=== PATIENT | male | born 1960 | race Caucasian/White ===

== ENCOUNTER 2019-02-09 01:25 | Outpatient (RCR) | payer BC, SELFPAY ==
[2019-02-09] MEDS: Normal Saline Flush 10 ML SYR IVP (08:40)
[2019-02-09 08:47] LABS: Abs Immature Grans 0.06 k/cumm (0.0-0.09); Absolute Basophil Count 0.03 k/cumm (0.0-0.2); Absolute Eosinophil Count 0.07 k/cumm (0.0-0.7); Absolute Lymphocyte Count 0.24 k/cumm (1.2-3.4); Basophils % 0.2; Eosinophils % 0.5; HCT 39.1 % (40.0-50.0); HGB 13.2 g/dL (13.5-17.5); Immature Grans % 0.4; Lymphocytes % 1.8; Mean Corp. HGB Concentration 33.8 g/dL (32.0-36.0); Mean Corpuscular Hemoglobin 31.7 pg (27.0-33.0); Mean Platelet Volume 9.8 fL (8.0-11.0); Monocytes % 13.3; Neutrophils % 83.8; Platelet Count 284 x1000/uL (130-400); RBC 4.16 m/cumm (4.50-6.00); RBC Distribution Width 12.9 % (11.8-14.1); White Blood Cell Count 13.52 k/cumm (4.4-10.8)
[2019-02-09 09:19] LABS: ALT 19 U/L (12-78); AST 25 U/L (15-37); Albumin 2.6 g/dL (3.4-5.0); Alkaline Phosphatase 159 U/L (46-116); Anion Gap 8.5 mmol/L (3-11); BUN 26 mg/dL (7-18); Bilirubin, Total 0.3 mg/dL (0.2-1.0); CO2 26.5 mmol/L (21.0-32.0); Calcium 9.2 mg/dL (8.5-10.1); Chloride 94 mmol/L (98-107); Glucose 106 mg/dL (70-100); LDH 294 U/L (85-227); Sodium 129 mmol/L (136-145); Total Protein 6.9 g/dL (6.4-8.2)
[2019-02-09 09:24] LABS: Absolute Neutrophil Count 11.33 k/cumm (1.2-6.7)
[2019-02-09 09:25] LABS: Diff Comment Agrees w/ Instrument; RBC Morphology Normal
== END 2019-02-18 23:59 | disposition home or self-care (01) ==
LOC: INF 01:25
PROVIDERS: PCP Specialist/Technologist Athletic Trainer; Visit Provider Internal Medicine Hematology & Oncology
DX: C15.5 Malignant neoplasm of lower third of esophagus (principal); Z45.2 Encounter for adjustment and management of vascular access device
CPT/HCPCS: 36591; 80053; 83615; 85025

== ENCOUNTER 2019-02-25 10:03 | Emergency (ER) | payer BC, SELFPAY ==
[2019-02-25 10:07] VITALS: BP 118/101; PULSE 67; RESP 20; TEMP 36.3; O2SAT 95
--- NOTE | 2019-02-25 10:22 | DI.CT_ITS ---
SYMPTOMS/DIAGNOSIS: CONFUSED, ON CHEMO, FALL YESTERDAY NONCONTRAST HEAD CT: The exam is limited by external artifacts. There are no prior comparison exams. There are areas of encephalomalacia in both frontal lobes near the midline. A small area of lacunar infarct is seen in the right frontal lobe. There is also question of a left cerebellar old infarct. No acute infarct or acute hemorrhage is visible. There is patchiness of the which matter consistent with sequelae of microvascular disease. A tiny mucous retention cyst is seen in the left maxillary sinus. 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 No acute abnormality.
--- NOTE | 2019-02-25 10:24 | DI.CT_ITS ---
SYMPTOMS/DIAGNOSIS: ESOPHAGEAL, STOMACH CANCER; CONFUSED; ABDOMINAL PAIN CHEST CT: There are no prior comparison exams. There is a lower esophageal stent. There is significant respiratory motion. There are blebs at the right lung apex and probable underlying emphysematous changes bilaterally. No infiltrates, pleural or pericardial effusions are seen. There is no gross evidence of adenopathy. There is a question of a mass versus debris at the upper end of the esophageal stent. The ascending aorta is dilated to 4.5 cm. There is no evidence of aortic dissection. Pulmonary arteries are not optimally opacified; however, no central pulmonary artery filling defects are seen. The heart size appears normal. IMPRESSION: Emphysematous changes. Lower esophageal stent with a question of a mass versus debris near the proximal portion of the stent. ABDOMINAL AND PELVIC CT: The exam is limited by patient motion. A stent is seen extending into the lower esophagus to upper stomach. There is a question of a mass at the upper aspect of the esophageal stent. Stool is seen throughout the colon. There is a large quantity of stool seen in the rectum. There is no bowel dilatation. No free air is seen. The liver, gallbladder, spleen, pancreas and kidneys are unremarkable. A Laboy catheter is noted in the urinary bladder, which is decompressed. The patient appears to be status post prostatectomy. There are sclerotic lesions in the bones, suspicious for metastatic disease. IMPRESSION: A large quantity of stool in the colon, particularly in the rectum. There is no evidence of small bowel obstruction.
--- NOTE | 2019-02-25 10:24 | W.ED.GENAD ---
Discharge Plan Disposition Patient Disposition: HOME Condition: Improving Discharge Details Chief Complaint: AMS/LOC Clinical Impression: Sedated due to multiple medications Primary Care Provider: Gillian Jane ED Provider: Carlos Chavez Home Meds and New Rx's Prescriptions: Continued Gelfoam 1 EACH sponge 1 ea Topical E.R. DOSE Qty: 1 RF: 0 fentanyl 50 mcg/hr Patch 72 Hour 50 mcg topical Q48H RF: 0 Discharge Instructions Additional Instructions: Home to rest tonight. Continue regular medications, but as we discussed I recommend you hold on restarting fentanyl patch until tomorrow morning. Return for any acute concerns. Medical Decision Making 58-year-old male who is receiving chemotherapy for esophageal cancer, last dose 3 days ago. He fell and hit his head at home 2 days ago. This morning he was noted to be confused, which the family states this happened following chemotherapy in the past. No recent fever. He does arrive with marijuana in his pocket and fentanyl patch in place. He appears mildly confused, note of mild hypertension. His neurologic exam is otherwise nonfocal. Differential diagnoses includes mild polysubstance effect due to his prescribed fentanyl, question marijuana use. Given the fall must exclude subdural hematoma or other acute intracranial pathology. Additionally, he is at risk for electrolyte abnormality, dehydration, hyperammonemia, as well as expanding mass given his esophageal/gastric cancer. . I removed his fentanyl patch. IV access was established, fluids initiated, patient referred for laboratory testing, CT scan of the head, as well as chest, abdomen, pelvis. Patient did require anxiolysis and small amount of analgesic to perform images adequately. CT images of the head showed no acute finding. There is old infarct present. CT scan of the chest abdomen and pelvis with bony mets, esophageal mass, no other acute findings. Note of large amount of stool. Laboratories White count 4.5, hematocrit 36, it was 301. Chemistry sodium of 132, potassium 3.7, chloride 94, bicarb 24, BUN 25, creatinine 0.8. Calcium 8.4, magnesium 1.7, LFTs with normal transaminases and total bili of 0.4, ammonia 32. Urinalysis without evidence of acute infection. Toxicology shows positive urine opiates and THC. Patient improving in mental status clearing with approximately 6 hours of observation and rehydration with normal saline. Blood pressure normalized. He ambulated, defecated, urinated on his own and subjectively felt better. Presentation consistent with sedation and mild delirium secondary prescribed opiates, marijuana. He is stable for discharge to home with family HPI General Mode of arrival: ambulatory. Date/Time Provider Initiated Documentation: 02/25/19 10:06. Limitations to Documentation: no limitations. Information obtained by: patient and family. History of Present Illness 58 year old M presents to the emergency department with the chief complaint of Confusion. Esophageal cancer. On chemo, fall 2 days ago, described as moderate, Quality is described as constant, Patient reports no radiation. Patient started experiencing this hour(s) and it has been constant. No relieving factors improve symptom(s), No exacerbating factors reported . Patient notes headaches and other (Abdominal pain.); denies fever/chills, nausea/vomiting, seizure and syncope. Patient did receive the following treatments prior to arrival, none Related Data Home Medications Medication Instructions Recorded Confirmed Gelfoam 1 ea TOPICAL E.R. DOSE #1 sponge 12/01/12 fentanyl 50 mcg TOPICAL Q48H 02/25/19 02/25/19 Previous Rx's Medication Instructions Recorded Gelfoam 1 ea TOPICAL E.R. DOSE #1 sponge 12/01/12 Allergies Allergy/AdvReac Type Severity Reaction Status Date / Time No Known Allergies Allergy Unverified 02/25/19 10:11 General Stated Complaint: AMS/LOC PIPPA: 2 Review of Systems Review of Systems No chest pain, cough, shortness of breath. No syncope. Fell while going to the bathroom 2 days ago. 6 systems reviewed and otherwise negative [facility] Medical History Esophageal cancer (Acute) Stomach cancer (Acute) Social History Smoking/Tobacco Use Status: Former Tobacco Use Alcohol Intake: never Drug use: Never Do you feel safe at home: Yes Do you feel safe in your relationship?: Yes Exam Narrative Exam Narrative: GEN: awake, alert, interactive and following commands per pleasant, well groomed. HEAD: Normocephalic, atraumatic ENT: Mucous membranes moist, oropharynx unremarkable, External ear exam unremarkable EYES: PERRL, EOMI NECK: Full ROM, no ADENIKE, no menigismus CHEST/RESP: Right chest port, nontender, clear to auscultation bilateral, no wheeze/rhonchi/rales CARDIOVASCULAR: RRR, no murmur, rub artemio. 2+ Rad pulse bilateral ABDOMEN: Soft, mild diffuse tenderness, no mass. +Bowel sounds EXT: Full ROM, no edema, no rash Neuro: Grossly normal neurologic exam, conversant, interactive. Follows commands. Cranial nerves II through XII intact. Pupils mildly dilated but symmetric and responsive bilaterally Psych: Speech fluent, affect bizarre at times Course Vital Signs Temperature 36.3 C L 02/25/19 10:07 Pulse 67 02/25/19 10:07 Respiratory Rate 20 02/25/19 10:07 Blood Pressure 118/101 H 02/25/19 10:07 Pulse Oximetry 95 02/25/19 10:07 Temperature 36.3 C L 02/25/19 10:07 Temperature Source Temporal Artery Scan 02/25/19 10:07 Pulse 67 02/25/19 10:07 Respiratory Rate 20 02/25/19 10:07 Respiratory Effort Non-Labored 02/25/19 10:07 Blood Pressure 118/101 H 02/25/19 10:07 Pulse Oximetry 95 02/25/19 10:07 Oxygen Delivery Method Room Air 02/25/19 10:07 Oxygen Flow Rate 0 02/25/19 10:07 Pain Level 0 02/25/19 10:07
[2019-02-25 10:41] LABS: Abs Immature Grans 0.01 k/cumm (0.0-0.09); Absolute Lymphocyte Count 0.19 k/cumm (1.2-3.4); Absolute Monocyte Count 0.48 k/cumm (0.11-0.7); Absolute Neutrophil Count 3.87 k/cumm (1.2-6.7); HCT 36.7 % (40.0-50.0); HGB 12.2 g/dL (13.5-17.5); Immature Grans % 0.2; Lymphocytes % 4.2; Mean Corp. HGB Concentration 33.2 g/dL (32.0-36.0); Mean Corpuscular Hemoglobin 30.7 pg (27.0-33.0); Mean Corpuscular Volume 92.4 fL (80-95); Mean Platelet Volume 9.7 fL (8.0-11.0); Monocytes % 10.5; Neutrophils % 85.1; Platelet Count 301 x1000/uL (130-400); RBC 3.97 m/cumm (4.50-6.00); RBC Distribution Width 13.1 % (11.8-14.1); White Blood Cell Count 4.55 k/cumm (4.4-10.8)
[2019-02-25 11:09] LABS: ALT 30 U/L (12-78); AST 27 U/L (15-37); Albumin 2.7 g/dL (3.4-5.0); Alkaline Phosphatase 507 U/L (46-116); Anion Gap 13.7 mmol/L (3-11); BUN 25 mg/dL (7-18); Bilirubin, Total 0.4 mg/dL (0.2-1.0); CO2 24.3 mmol/L (21.0-32.0); CREATININE 0.87 mg/dL (0.70-1.30); Calcium 8.4 mg/dL (8.5-10.1); Chloride 94 mmol/L (98-107); Glucose 137 mg/dL (70-100); Magnesium 1.7 mg/dL (1.8-2.4); Potassium 3.7 mmol/L (3.5-5.1); Sodium 132 mmol/L (136-145); TSH 0.63 uIU/mL (0.36-3.74); Total Protein 7.1 g/dL (6.4-8.2)
[2019-02-25 11:32] LABS: ETHANOL BLOOD < 3.0 mg/dL (<3)
[2019-02-25 11:50] LABS: Ammonia 32 umol/L (11-32)
[2019-02-25] MEDS: LORazepam 2 MG/ML VIAL 0.5 MG IVP (11:54)
[2019-02-25] MEDS: LORazepam 2 MG/ML VIAL (12:13)
[2019-02-25 12:32] LABS: Bilirubin Small (Negative); Blood Negative (Negative); Clarity Clear (Clear); Glucose Negative (Negative); Ketones 15 mg/dL (Negative); Leukocyte Esterase Negative (Negative); Nitrite Negative (Negative)
[2019-02-25 12:45] LABS: Bacteria Rare HPF (Negative); C & S Indicated? No; Casts 0-2 Hyaline LPF (Negative); Crystals Negative HPF (Negative); Epithelial Cells Rare HPF (Negative); Mucus Trace (Negative); RBC Negative (0-2); WBC 0-2 HPF (0-5)
[2019-02-25] MEDS: MORPHine 10 MG/ML VIAL 4 MG IVP (13:09)
[2019-02-25] MEDS: Normal Saline 1,000 ML 125 ML IV (13:09)
[2019-02-25 13:14] VITALS: BP 140/84; PULSE 84; RESP 18; O2SAT 94
[2019-02-25 13:15] VITALS: BP 117/79
[2019-02-25] MEDS: Omnipaque 350 MG/ML 100 ML BTL IJ (14:10)
[2019-02-25 14:16] LABS: *AMPHETAMINES SCREEN URINE Negative (Negative); *BARBITURATES SCREEN URINE Negative (Negative); *BENZODIAZEPINES SCREEN URINE Negative (Negative); Cannabinoids THC POSITIVE (Negative); Cocaine Screen,Urine Negative (Negative); METHADONE URINE SCREEN Negative (Negative); OPIATES URINE SCREEN POSITIVE (Negative); Tricyclic Antidepressants Negative (Negative)
[2019-02-25 17:30] VITALS: BP 132/85; PULSE 80
== END 2019-02-25 17:25 | disposition home or self-care (01) ==
PROVIDERS: Emergency Provider Emergency Medicine; PCP Nurse Practitioner Family
DX: R40.0 Somnolence (principal); T40.4X5A Adverse effect of other synthetic narcotics, initial encounter; S09.90XA Unspecified injury of head, initial encounter; W18.30XA Fall on same level, unspecified, initial encounter; F11.921 Opioid use, unspecified with intoxication delirium; F12.921 Cannabis use, unspecified with intoxication delirium; C15.5 Malignant neoplasm of lower third of esophagus; Z79.899 Other long term (current) drug therapy; Z95.828 Presence of other vascular implants and grafts
CPT/HCPCS: 36416; 36591; 36592; 74177; 80053; 80307; 82962; 96361; 96374; 96375; 99285; 70450; 71260; 80320; 81003; 81015; 82140; 83735; 84443; 85025; J2060; J2270; J3490

== ENCOUNTER 2019-03-09 01:40 | Outpatient (RCR) | payer BC, SELFPAY ==
[2019-02-23] MEDS: Normal Saline Flush 10 ML SYR IVP (08:00)
[2019-02-23 08:18] LABS: Abs Immature Grans 0.01 k/cumm (0.0-0.09); Absolute Basophil Count 0.03 k/cumm (0.0-0.2); Absolute Eosinophil Count 0.19 k/cumm (0.0-0.7); Absolute Lymphocyte Count 0.42 k/cumm (1.2-3.4); Absolute Monocyte Count 0.98 k/cumm (0.11-0.7); Absolute Neutrophil Count 4.79 k/cumm (1.2-6.7); Basophils % 0.5; HCT 38.3 % (40.0-50.0); HGB 12.9 g/dL (13.5-17.5); Immature Grans % 0.2; Lymphocytes % 6.5; Mean Corp. HGB Concentration 33.7 g/dL (32.0-36.0); Mean Corpuscular Hemoglobin 31.4 pg (27.0-33.0); Mean Corpuscular Volume 93.2 fL (80-95); Monocytes % 15.3; Neutrophils % 74.5; Platelet Count 284 x1000/uL (130-400); RBC 4.11 m/cumm (4.50-6.00); RBC Distribution Width 13.2 % (11.8-14.1); White Blood Cell Count 6.42 k/cumm (4.4-10.8)
[2019-02-23 08:32] LABS: ALT 24 U/L (12-78); AST 23 U/L (15-37); Albumin 2.6 g/dL (3.4-5.0); Alkaline Phosphatase 435 U/L (46-116); Anion Gap 10.1 mmol/L (3-11); BUN 22 mg/dL (7-18); Bilirubin, Total 0.5 mg/dL (0.2-1.0); CO2 26.9 mmol/L (21.0-32.0); CREATININE 0.75 mg/dL (0.70-1.30); Calcium 9.1 mg/dL (8.5-10.1); Chloride 94 mmol/L (98-107); Glucose 112 mg/dL (70-100); Potassium 3.7 mmol/L (3.5-5.1); Sodium 131 mmol/L (136-145)
[2019-02-24 11:02] LABS: CEA 574.3 ng/ml
[2019-03-09] MEDS: Normal Saline Flush 10 ML SYR IVP (07:50)
[2019-03-09 08:35] LABS: Abs Immature Grans 0.01 k/cumm (0.0-0.09); HGB 11.1 g/dL (13.5-17.5); Mean Corp. HGB Concentration 32.6 g/dL (32.0-36.0); Mean Corpuscular Hemoglobin 30.7 pg (27.0-33.0); Mean Corpuscular Volume 94.2 fL (80-95); Platelet Count 225 x1000/uL (130-400); RBC 3.61 m/cumm (4.50-6.00); RBC Distribution Width 14.2 % (11.8-14.1); White Blood Cell Count 3.33 k/cumm (4.4-10.8)
[2019-03-09 09:02] LABS: ALT 27 U/L (12-78); AST 18 U/L (15-37); Albumin 2.3 g/dL (3.4-5.0); Alkaline Phosphatase 495 U/L (46-116); BUN 19 mg/dL (7-18); Bilirubin, Total 0.4 mg/dL (0.2-1.0); CREATININE 0.69 mg/dL (0.70-1.30); Calcium 8.5 mg/dL (8.5-10.1); Chloride 95 mmol/L (98-107); Glucose 135 mg/dL (70-100); Potassium 3.1 mmol/L (3.5-5.1); Sodium 133 mmol/L (136-145); Total Protein 6.5 g/dL (6.4-8.2)
[2019-03-09 09:06] LABS: Absolute Neutrophil Count 2.03 k/cumm (1.2-6.7)
[2019-03-09 09:07] LABS: Absolute Eosinophil Count 0.03 k/cumm (0.0-0.7); Absolute Monocyte Count 1.07 k/cumm (0.11-0.7); Anisocytosis 1+; Diff Comment Manual Differential; Macrocytosis 1+; Polychromasia Present
[2019-03-10 09:29] LABS: CEA 372.4 ng/ml
== END 2019-03-21 23:59 | disposition home or self-care (01) ==
LOC: INF 01:40
PROVIDERS: PCP Specialist/Technologist Athletic Trainer; Visit Provider Internal Medicine Hematology & Oncology
DX: C15.5 Malignant neoplasm of lower third of esophagus (principal); Z45.2 Encounter for adjustment and management of vascular access device
CPT/HCPCS: 36591; 80053; 82378; 85025

== ENCOUNTER 2019-03-20 12:42 | Inpatient (IN) | payer BC, SELFPAY ==
[2019-03-20] VITALS (29 sets, daily range): BP systolic 94–108; BP diastolic 53–77; PULSE 64–110; RESP 13–20; TEMP 36.4–37.7; O2SAT 93–100
--- NOTE | 2019-03-20 12:52 | DI.CT_ITS ---
SYMPTOM/DIAGNOSIS: KNOWN ABD CA AND ESOPHAGEAL CA, DECREASED PO, VOMITING CTA CHEST, ABDOMEN AND PELVIS: CHEST: CT angiography was performed with multi slice acquisition and multi planar and 3D reconstruction. Comparison is made with 02/25/19. The ascending aorta is again noted to be dilated. There is no evidence of aortic dissection. An esophageal stent is seen. The stomach and esophagus are fluid filled. There may be obstruction at the upper aspect of the stent although no discrete mass is seen. There are no visible pulmonary emboli. There is some mucus within right lower lobe bronchi. No pleural or pericardial effusions or acute infiltrates are seen. There are underlying emphysematous changes and bulla at the lung apices. Bony metastases are again noted. A Port is seen over the left upper chest. IMPRESSION: No evidence of pulmonary emboli or aortic dissection. There is an apparent obstruction at the upper aspect of the esophageal stent. ABDOMEN AND PELVIS: The esophageal stent is again noted extending into the upper stomach. There is no small bowel dilatation. Increased stool is noted in the cecum and ascending colon. There are small mesenteric lymph nodes. The pancreas is atrophic. The kidneys show symmetric bilateral perfusion. There are several tiny cysts. There are no stones or hydronephrosis. The liver and gallbladder are unremarkable. There is calcification of the abdominal aorta and iliac arteries but no evidence of an aneurysm or dissection. The bladder is nearly empty. The prostate shows calcification but is normal in size. Numerous sclerotic bony metastases are seen. IMPRESSION: Increased stool in the cecum. Atherosclerotic changes of the abdominal aorta. No acute abnormality.
--- NOTE | 2019-03-20 12:57 | ED.GENADUL_ITS ---
Discharge Plan Disposition Patient Disposition: [facility] IN[facility] Condition: Stable Discharge Details Chief Complaint: GenMedical Clinical Impression: Palliative care patient, Adult failure to thrive, Acute dehydration Primary Care Provider: Gillian Jane ED Provider: Hima Caldera Home Meds and New Rx's Prescriptions: No Action acetaminophen 650 mg tablet extended release 650 mg PO Q8H RF: 0 polyethylene glycol 3350 [Miralax] 17 gram powder in packet 17 gm PO DAILY RF: 0 prochlorperazine maleate 10 mg tablet 10 mg PO Q8H PRNRF: 0 omeprazole magnesium 10 mg susp,delayed release for recon 40 mg PO BID RF: 0 Ensure Active Heart Health Liquid PO BID-TID RF: 0 hydromorphone [Dilaudid] 2 mg tablet 2 mg PO Q4H MDD 12 mg PRN (Reason: pain) Qty: 30 RF: 0 lidocaine HCl [Lidocaine Viscous] 2 % solution 1 applic MM QID PRN (Reason: pain) Qty: 100 RF: 3 ondansetron 4 mg tablet,disintegrating 4 mg PO Q8H PRN (Reason: nausea and vomiting) Qty: 30 RF: 0 Medical Decision Making This is a 58-year-old male who presents today for evaluation of failure to thrive. 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 He is receiving chemotherapy, and did have radiation 6 weeks ago. He was seen by his PCP today, and there was concern for failure to thrive with significant decrease intake, constant spitting up, decreased blood pressure and increased heart rate. PCP recommended admission, hospitalist recommended evaluation in ED prior to admission. On exam at there is a notably cachectic thin male blood pressure is slightly low, heart rate slightly elevated, generalized abdominal pain, actively spitting up small amounts of spit. No signs of airway obstruction. The patient is able to tolerate fluids still but limited. We will rehydrate, further evaluate his current upper GI scenario with CT scan, treat his pain and reassess. 2:45 PM Laboratory work-up is returned, no significant acute life-threatening abnormalities or electrolyte dysfunction noted. Troponin normal. EKG demonstrates notable elevation in P wave, but no bifid P wave, concern for right atrial enlargement. CT Yara was added to rule out PE because of this. CT scan per Dr. Boggs of the chest abdomen and pelvis demonstrates no acute process, she states that the esophagus and stent is fluid-filled, but the abrupt proximal endpoint actually appears better than on previous CT scans. There is a mucous plug but no other life-threatening abnormality noted at this time. On rehydration the patient's heart rate has improved, blood pressure stabilized to the low 100s. The patient does feel better after Zofran, pain meds and fluids. However I do feel that he would still benefit from admission, continued hydration, palliative care consult, and further evaluation with dietary. I discussed the case with Dr. Gama, I have extensively reviewed the treatment plan with the patient. I have addressed all patient concerns at this time. I have also discussed the plan with the admitting physician and they agree with the current assessment and plan and have agreed to assume responsibility for the patient. All parties demonstrate verbal understanding and agreement with our assessment and plan at this time. TA CHEST, ABDOMEN AND PELVIS: CHEST: CT angiography was performed with multi slice acquisition and multi planar and 3D reconstruction. Comparison is made with 02/25/19. The ascending aorta is again noted to be dilated. There is no evidence of aortic dissection. An esophageal stent is seen. The stomach and esophagus are fluid filled. There may be obstruction at the upper aspect of the stent although no discrete mass is seen. There are no visible pulmonary emboli. There is some mucus within right lower lobe bronchi. No pleural or pericardial effusions or acute infiltrates are seen. There are underlying emphysematous changes and bulla at the lung apices. Bony metastases are again noted. A Port is seen over the left upper chest. IMPRESSION: No evidence of pulmonary emboli or aortic dissection. There is an apparent obstruction at the upper aspect of the esophageal stent. ABDOMEN AND PELVIS: The esophageal stent is again noted extending into the upper stomach. There is no small bowel dilatation. Increased stool is noted in the cecum and ascending colon. There are small mesenteric lymph nodes. The pancreas is atrophic. The kidneys show symmetric bilateral perfusion. There a re several tiny cysts. There are no stones or hydronephrosis. The liver and gallbladder are unremarkable. There is calcification of the abdominal aorta and iliac arteries but no evidence of an aneurysm or dissection. The bladder is nearly empty. The prostate shows calcification but is normal in size. Numerous sclerotic bony metastases are seen. IMPRESSION: Increased stool in the cecum. Atherosclerotic changes of the abdominal aorta. No acute abnormality. [id number]: Total DLP = 0.00 mGy-cm EKG 13: 60 Rate 94, intervals normal, sinus rhythm, notable T wave elevation in 2 3 and aVF, no ST elevation, no significant ST depression. No evidence of STEMI. Considered for notable right atrial enlargement, no bifid P waves, no indication for left atrial enlargement. HPI General Date/Time Provider Initiated Documentation: 03/20/19 12:45 . HPI Narrative: This is a 58-year-old male with a past medical history of esophageal cancer with stenting, and metastases, he has received radiation 6 weeks ago, and is still currently undergoing chemotherapy. He presents today for evaluation of failure to thrive. He was seen by his primary care provider Dr. Mehta, and was found to be notably decreasing his p.o. intake, having increased pain, decreased urine output, and low blood pressure. The PCP contacted the hospitalist Dr. Gama who recommended that the patient come to the ER for initial assessment prior to admission. Currently the patient admits to decreased in the eating, increased abdominal pain, constant spitting up of purulent throat contents. He denies any fever or chills. He denies any chest pain or shortness of breath. He denies any numbness or tingling. He denies any hemoptysis, hematuria, hematochezia, melena or acholic stool. No other complaints at this time. No current blood thinners. No history of cardiac disease. No history of stroke. He is currently under the care of palliative care and is full code. Related Data Home Medications Medication Instructions Recorded Confirmed acetaminophen 650 mg 650 mg PO Q8H 03/17/19 03/17/19 tablet,extended release food supplemt, lactose-reduced ml PO BID-TID ml 03/17/19 03/17/19 hydromorphone 2 mg tablet 2 mg PO Q4H PRN #30 tab MDD 12 mg 03/17/19 03/17/19 lidocaine HCl 2 % mucosal solution 1 applic MM QID PRN #100 ml 03/17/19 03/17/19 omeprazole magnesium 10 mg oral 40 mg PO BID each 03/17/19 03/17/19 suspension,delayed release ondansetron 4 mg disintegrating 4 mg PO Q8H PRN #30 tab 03/17/19 03/17/19 tablet polyethylene glycol 3350 17 gram 17 gm PO DAILY 03/17/19 03/17/19 oral powder packet prochlorperazine maleate 10 mg 10 mg PO Q8H PRN 03/17/19 03/17/19 tablet Previous Rx's Medication Instructions Recorded hydromorphone 2 mg tablet 2 mg PO Q4H PRN #30 tab MDD 12 mg 03/17/19 lidocaine HCl 2 % mucosal solution 1 applic MM QID PRN #100 ml 03/17/19 ondansetron 4 mg disintegrating 4 mg PO Q8H PRN #30 tab 03/17/19 tablet Allergies Allergy/AdvReac Type Severity Reaction Status Date / Time No Known Allergies Allergy Unverified 02/25/19 10:11 General Stated Complaint: GenMedical PIPPA: 2 Review of Systems Review of Systems All systems reviewed & are unremarkable except as noted in HPI and below PFSH Medical History (Updated 03/20/19 @ 09:16 by Selina Moody MD) Acid reflux disease (Chronic) Back pain (Acute) Cancer related pain (Acute) Dysphagia (Acute) Esophageal cancer (Acute) Fatigue (Acute) Goals of care, counseling/discussion (Acute) Hyperlipidemia (Acute) Malignant cachexia (Acute) Palliative care patient (Acute) Stage IV adenocarcinoma of esophagus (Acute) Stomach cancer (Acute) Tobacco abuse (Acute) Unintentional weight loss (Acute) Family History (Updated 03/20/19 @ 08:48 by Selina Moody MD) Mother , age 89 following a fall Fall Mixed Alzheimer's and vascular dementia Father , age 72 from COPD End stage COPD Smoker Brother End stage COPD Smoker Brother Stroke Sister No problems noted. Sister No problems noted. Sister No problems noted. Son No problems noted. Son No problems noted. Social History (Updated 03/20/19 @ 08:52 by Selina Moody MD) Smoking/Tobacco Use Status: Former Tobacco Use Tobacco: How many years used: 45 Second Hand Exposure: No Alcohol Intake: former Drug use: Never Caregiver/Support person: Yes Household members: spouse Housing: house Number of Children: 2 number of grandchildren: 2 Communication Needs: Hard of Hearing and Corrective Lenses Education Level: high school Do you need help understanding health information?: Always current occupation: disabled as of December 2018 [employer] Pets and animals: No What is your relationship status?: How often do you talk on the phone with friends or family?: once per week How often do you get together with friends or relatives?: three or more times per week Panel score (0-1 are the most socially isolated patients): 2 What type of physical activity do you participate in: none Special joselito needs: No Agree to transfusion: Yes Seatbelt use: sometimes Firearms in home: Yes Do you feel safe at home: Yes Do you feel safe in your relationship?: Yes Additional Social history: in November 2018. Diagnosed with stage IV esophageal cancer in December. House under major renovations. Too weak to sit up during his visit. Cannot manage construction project. took out major loan for work. Afraid she will lose her house now. Needed 2 incomes to pay bills. Exam Narrative Exam Narrative: 1.Const: Thin, cachectic appearing male. 2.Eyes: PERRL, no conjunctival injection, and symmetrical lids. 3.ENT: Atraumatic external nose and ears. Notably dry MM. Neck: Symmetric, trachea midline, No thyromegaly. 4.CVS: +S1/S2, No murmurs or gallops. Peripheral pulses 2+ and equal in all extremities. Brisk capillary refill in all extremities. 5.RESP: Unlabored respiratory effort. Minimal crackles in the bases, no wheezes or rhonchi. 6.GI: Soft,, slightly scaphoid, nondistended, tenderness throughout. 7.MSK: Normocephalic/Atraumatic, Extremities w/o deformity or ttp No cyanosis or clubbing, Normal movement of all extremities 8.Skin: Warm, Dry. No rashes or lesions. 9.Neuro: help desk specialist II-XII grossly intact. Sensation grossly intact, no focal neurologic deficits. 10.Psych: (AAO) x3. Appropriate mood and affect Course Vital Signs Temperature 36.4 C L 03/20/19 12:46 Pulse 110 H 03/20/19 12:46 Respiratory Rate 18 03/20/19 12:46 Blood Pressure 98/53 L 03/20/19 12:46 Pulse Oximetry 97 03/20/19 12:46 Temperature 36.4 C L 03/20/19 12:46 Temperature Source Skin 03/20/19 12:46 Pulse 110 H 08/30/19 12:46 Respiratory Rate 18 03/20/19 12:46 Respiratory Effort 03/20/19 12:50 Blood Pressure 98/53 L 03/20/19 12:46 Blood Pressure Position Sitting 03/20/19 12:46 Pulse Oximetry 97 03/20/19 12:46
[2019-03-20] MEDS: Normal Saline Flush 10 ML SYR IVP ×2 (13:05→20:56)
[2019-03-20] MEDS: Normal Saline 1,000 ML 1000 ML IV (13:05)
[2019-03-20] MEDS: MORPHine 10 MG/ML VIAL 4 MG IVP ×2 (13:16→15:05)
[2019-03-20 13:18] LABS: Abs Immature Grans 0.01 k/cumm (0.0-0.09); Absolute Basophil Count 0.01 k/cumm (0.0-0.2); Absolute Eosinophil Count 0.01 k/cumm (0.0-0.7); Absolute Lymphocyte Count 0.31 k/cumm (1.2-3.4); Absolute Monocyte Count 1.12 k/cumm (0.11-0.7); Absolute Neutrophil Count 4.98 k/cumm (1.2-6.7); Basophils % 0.2; Eosinophils % 0.2; HCT 33.8 % (40.0-50.0); HGB 11.1 g/dL (13.5-17.5); Immature Grans % 0.2; Lymphocytes % 4.8; Mean Corp. HGB Concentration 32.8 g/dL (32.0-36.0); Mean Corpuscular Hemoglobin 31.1 pg (27.0-33.0); Mean Corpuscular Volume 94.7 fL (80-95); Mean Platelet Volume 10.8 fL (8.0-11.0); Monocytes % 17.4; Neutrophils % 77.2; Platelet Count 161 x1000/uL (130-400); RBC 3.57 m/cumm (4.50-6.00); RBC Distribution Width 14.6 % (11.8-14.1); White Blood Cell Count 6.44 k/cumm (4.4-10.8)
[2019-03-20] MEDS: Ondansetron 4 MG/2 ML VIAL IVP (13:19)
[2019-03-20 13:36] LABS: ALT 34 U/L (16-63); AST 25 U/L (15-37); Albumin 2.5 g/dL (3.4-5.0); Alkaline Phosphatase 428 U/L (46-116); Anion Gap 10.5 mmol/L (3-11); BUN 21 mg/dL (7-18); Bilirubin, Total 0.4 mg/dL (0.2-1.0); CO2 26.5 mmol/L (21.0-32.0); CREATININE 0.85 mg/dL (0.70-1.30); Calcium 8.6 mg/dL (8.5-10.1); Chloride 98 mmol/L (98-107); Glucose 143 mg/dL (70-100); Potassium 3.7 mmol/L (3.5-5.1); Sodium 135 mmol/L (136-145); Total Protein 6.7 g/dL (6.4-8.2)
[2019-03-20] MEDS: Omnipaque 350 MG/ML 100 ML BTL IV (13:53)
[2019-03-20 13:56] LABS: Lipase 26 U/L (73-393)
[2019-03-20 14:19] LABS: Troponin I < 0.05 ng/mL (0.00-0.06)
[2019-03-20] MEDS: Normal Saline 1,000 ML 75 ML IV (16:15)
[2019-03-20] MEDS: Heparin 5,000 UNITS/ML VIAL 5000 UNITS SC (17:34)
--- NOTE | 2019-03-20 19:47 | HPE_ITS ---
Date of service: 03/20/19 Time of Service: 19:48 Assessment and Plan (1) Uncontrolled pain: Current visit: Yes Status: Acute chest pain in addition to odynophagia. cover with IV morphine, continue fentanyl patches - consider increasing dose, agree with viscous lidocaine (2) Stage IV adenocarcinoma of esophagus: Current visit: No Status: Acute with bony mets, on chemo under Dr Steen. S/p esophageal stent - ? obstructed now - awaiting phone consult with GI. (3) Dysphagia: Current visit: No Status: Acute Likely related to the esophageal obstruction. [place] [facility] On clear liquids for now. (4) Malignant cachexia: Current visit: No Status: Acute consult nutrition. BMI of 16.2 (5) DVT prophylaxis: Current visit: Yes Status: Acute Heparin SC (6) Discharge planning issues: Current visit: Yes Status: Acute Full code Patient and refuse transfer History of Present Illness Chief Complaint: chest pain Narrative: Mr David Shanks is a 58 year old male with stage IV esophageal adenocarcinoma, on chemo, s/p XRT and esophageal stent, as well as h/o GERD, who has been having a lot of pain, especially when eating solids, in his chest. The pain is mostly in his lower chest - in the center and bilaterally, but he also gets a pain in his midchest when he eats solids, which sometimes feels like food might be getting stuck. Until today, he hadn't had vomiting at home except after chemo. He is under treatment of his cancer by Dr Steen. He was felt to be a poor candidate for PEG/G-tube when he had the esophageal [place] [facility] [place] Austin. He was on a combination of fentanyl patch 50 mcg/hr and morphine at home, which was recently switched to PO dilaudid. He is on a PPI, taking ensure supplements, and despite this has lost 80 lbs since December. In the ED, his CT imaging suggested an obstruction at the proximal end of the esophageal stent. The patient's states they cannot afford an ambulance [place] [facility] and refuses transfer at this time. We are awaiting call back [place] [facility] at this time with their opinion as to how to proceed. The patient states he can still tolerate liquids at this time. His goal in coming here was to get pain control. Review of Systems Review of Systems 12 systems reviewed. Pertinent positives and negatives are as per HPI. [facility] Medical History (Updated 03/20/19 @ 20:13 by Rosemary Gama MD) Acid reflux disease (Chronic) Back pain (Acute) Cancer related pain (Acute) Dysphagia (Acute) Esophageal cancer (Acute) Fatigue (Acute) Goals of care, counseling/discussion (Acute) Hyperlipidemia (Acute) Malignant cachexia (Acute) Palliative care patient (Acute) Stage IV adenocarcinoma of esophagus (Acute) Stomach cancer (Acute) Tobacco abuse (Acute) Unintentional weight loss (Acute) Surgical History (Updated 03/20/19 @ 20:07 by Rosemary Gama MD) H/O esophagogastroduodenoscopy (Chronic) and esophageal stent Port-A-Cath in place (Acute) Family History (Updated 03/20/19 @ 20:08 by Rosemary Gama MD) Mother , age 89 following a fall Fall Mixed Alzheimer's and vascular dementia Father , age 72 from COPD End stage COPD Smoker Brother End stage COPD Smoker Brother No problems noted. Sister No problems noted. Sister No problems noted. Sister No problems noted. Son No problems noted. Son No problems noted. Social History (Updated 03/20/19 @ 08:52 by Selina Moody MD) Smoking/Tobacco Use Status: Former Tobacco Use Tobacco: How many years used: 45 Second Hand Exposure: No Alcohol Intake: former Drug use: Never Caregiver/Support person: Yes Household members: spouse Housing: house Number of Children: 2 number of grandchildren: 2 Communication Needs: Hard of Hearing and Corrective Lenses Education Level: high school Do you need help understanding health information?: Always current occupation: disabled as of December 2018 [employer] Pets and animals: No What is your relationship status?: How often do you talk on the phone with friends or family?: once per week How often do you get together with friends or relatives?: three or more times per week Panel score (0-1 are the most socially isolated patients): 2 What type of physical activity do you participate in: none Special joselito needs: No Agree to transfusion: Yes Seatbelt use: sometimes Firearms in home: Yes Do you feel safe at home: Yes Do you feel safe in your relationship?: Yes Additional Social history: in November 2018. Diagnosed with stage IV esophageal cancer in December. House under major renovations. Too weak to sit up during his visit. Cannot manage construction project. took out major loan for work. Afraid she will lose her house now. Needed 2 incomes to pay bills. Meds Home Medications Medication Instructions Recorded Confirmed Type acetaminophen 650 mg 650 mg PO Q8H 03/17/19 03/20/19 History tablet,extended release hydromorphone 2 mg tablet 2 mg PO Q4H PRN #30 tab MDD 12 mg 03/17/19 03/20/19 Rx lidocaine HCl 2 % mucosal solution 1 applic MM QID PRN #100 ml 03/17/19 03/20/19 Rx omeprazole magnesium 10 mg oral 40 mg PO BID each 03/17/19 03/20/19 History suspension,delayed release ondansetron 4 mg disintegrating 4 mg PO Q8H PRN #30 tab 03/17/19 03/20/19 Rx tablet polyethylene glycol 3350 17 gram 17 gm PO DAILY 03/17/19 03/20/19 History oral powder packet prochlorperazine maleate 10 mg 10 mg PO Q8H PRN 03/17/19 03/20/19 History tablet fentanyl 50 patch TRANSDERMAL Q48H 03/20/19 03/20/19 History morphine 15 mg PO Q4H PRN 03/20/19 03/20/19 History Allergies Allergy/AdvReac Type Severity Reaction Status Date / Time No Known Allergies Allergy Unverified 02/25/19 10:11 Exam Narrative Exam Narrative: General: Very pleasant, tired, cachectic appearing male, uncomfortable in bed Neurological: A&Ox3, no focal deficits Psychiatric: flat affect - but appropriate speech pattern/content Skin: dry, intact HEENT: Atraumatic, normocephalic, EOMI, dry MM, clear oropharynx, no submandibular or cervical lymphadenopathy, no goiter or JVD Cardiovascular: RRR, no m/r/g Lungs: CTAB Gastrointestinal: abdomen is soft, nontender, nondistended Extremities: no e/c/c BLE's Results Imaging Additional studies: CTA chest: No evidence of pulmonary emboli or aortic dissection. There is an apparent obstruction at the upper aspect of the esophageal stent. CT abdomen/pelvis: Increased stool in the cecum. Atherosclerotic changes of the abdominal aorta. No acute abnormality. Labs : 03/20/19 13:05 03/20/19 13:05 Laboratory Results - last 24 hr 03/20/19 03/20/19 03/20/19 13:05 13:05 13:05 WBC 6.44 RBC 3.57 L Hgb 11.1 L Hct 33.8 L MCV 94.7 MCH 31.1 MCHC 32.8 RDW 14.6 H Plt Count 161 MPV 10.8 Immature Gran % 0.2 Neutrophils % 77.2 Lymphocytes % 4.8 Monocytes % 17.4 Eosinophils % 0.2 Basophils % 0.2 Absolute Neutrophils 4.98 Absolute Lymphocytes 0.31 L Absolute Monocytes 1.12 H Absolute Eosinophils 0.01 Absolute Basophils 0.01 Sodium 135 L Potassium 3.7 Chloride 98 Carbon Dioxide 26.5 Anion Gap 10.5 BUN 21 H Creatinine 0.85 Estimated GFR/1.73 m2 >= 60.00 Glucose 143 H Calcium 8.6 Magnesium 2.0 Total Bilirubin 0.4 AST 25 ALT 34 Alkaline Phosphatase 428 H Troponin I Total Protein 6.7 Albumin 2.5 L Lipase 26 L 03/20/19 13:05 WBC RBC Hgb Hct MCV MCH MCHC RDW Plt Count MPV Immature Gran % Neutrophils % Lymphocytes % Monocytes % Eosinophils % Basophils % Absolute Neutrophils Absolute Lymphocytes Absolute Monocytes Absolute Eosinophils Absolute Basophils Sodium Potassium Chloride Carbon Dioxide Anion Gap BUN Creatinine Estimated GFR/1.73 m2 Glucose Calcium Magnesium Total Bilirubin AST ALT Alkaline Phosphatase Troponin I < 0.05 Total Protein Albumin Lipase Last Vital Signs Temp 36.8 C 03/20/19 16:31 Pulse 64 03/20/19 16:31 Resp 18 03/20/19 16:31 BP 108/70 03/20/19 16:31 Pulse Ox 95 03/20/19 16:31
[2019-03-20] MEDS: MORPHine 2 MG/ML SYR IV (20:54)
[2019-03-20] MEDS: Pantoprazole 40 MG VIAL IVP (20:55)
[2019-03-20] MEDS: Metoclopramide 10 MG/2 ML VIAL IVP (20:55)
[2019-03-20] MEDS: fentaNYL 50 MCG PATCH TD (21:31)
[2019-03-21] MEDS: MORPHine 2 MG/ML SYR IV ×3 (00:51→16:11)
[2019-03-21] MEDS: Normal Saline Flush 10 ML SYR IVP ×3 (00:52→15:27)
[2019-03-21] MEDS: Metoclopramide 10 MG/2 ML VIAL IVP ×3 (00:52→15:27)
[2019-03-21] MEDS: Heparin 5,000 UNITS/ML VIAL 5000 UNITS SC ×3 (00:53→15:26)
[2019-03-21 01:00] VITALS: BP 120/65; PULSE 61; RESP 19; TEMP 38.1; O2SAT 95
[2019-03-21 01:05] VITALS: TEMP 38
--- NOTE | 2019-03-21 01:56 | DI.RAD_ITS ---
SYMPTOMS/DIAGNOSIS: FEVER, DYSPNEA AP PORTABLE CHEST: The film is rotated. There are no prior comparison exams. There is a port over the right upper chest with the tip in the SVC. A stent is again noted in the distal esophagus. The lungs appear clear. The heart is not enlarged. Dilatation of the ascending aorta is again seen. IMPRESSION: No acute abnormality.
--- NOTE | 2019-03-21 02:16 | DI.VRAD_ITS ---
EXAM: XR Chest, 1 View EXAM DATE/TIME: 03/21/2019 01:36 CLINICAL HISTORY: 58 years old, male; Dyspnea and fever; Prior surgery; Surgery date: 1-6 months; Surgery type: Port TECHNIQUE: Imaging protocol: XR of the chest, 1 view. COMPARISON: CT CHEST/ABD/PEL W 03/20/2019 13:27 FINDINGS: Tubes, catheters and devices: Right chest wall port in satisfactory position tip in the SVC. Lungs: Rotated study, with no new significant airspace disease. Significant pulmonary emphysema again seen. Pleural space: No significant pleural effusion. No pneumothorax. Heart/Mediastinum: Distal esophageal stent extending across the GE junction in stable configuration. Vasculature: Ascending aortic aneurysm. Bones/joints: No acute fracture. IMPRESSION: 1. Rotated study, with no new significant airspace disease. 2. Significant pulmonary emphysema again seen. 3. Ascending aortic aneurysm. 4. Distal esophageal stent extending across the GE junction in stable configuration. Dictated and Authenticated by: Kristen Gu MD. Ordering:[facility] Noah Dennis MD
[2019-03-21] MEDS: Normal Saline 1,000 ML 75 ML IV (03:39)
[2019-03-21 08:50] VITALS: BP 140/80; PULSE 68; RESP 16; TEMP 37.3; O2SAT 96
[2019-03-21] MEDS: Pantoprazole 40 MG VIAL IVP (08:58)
[2019-03-21 10:34] LABS: Abs Immature Grans 0.01 k/cumm (0.0-0.09); Absolute Basophil Count 0.01 k/cumm (0.0-0.2); Absolute Eosinophil Count 0.01 k/cumm (0.0-0.7); Absolute Lymphocyte Count 0.26 k/cumm (1.2-3.4); Absolute Monocyte Count 0.73 k/cumm (0.11-0.7); Absolute Neutrophil Count 1.58 k/cumm (1.2-6.7); Basophils % 0.4; Eosinophils % 0.4; HCT 28.1 % (40.0-50.0); HGB 9.1 g/dL (13.5-17.5); Immature Grans % 0.4; Mean Corp. HGB Concentration 32.4 g/dL (32.0-36.0); Mean Corpuscular Hemoglobin 30.8 pg (27.0-33.0); Mean Corpuscular Volume 95.3 fL (80-95); Mean Platelet Volume 10.1 fL (8.0-11.0); Monocytes % 28.1; Neutrophils % 60.7; RBC 2.95 m/cumm (4.50-6.00); RBC Distribution Width 14.9 % (11.8-14.1)
[2019-03-21 10:47] LABS: Anion Gap 7.4 mmol/L (3-11); BUN 13 mg/dL (7-18); CO2 25.6 mmol/L (21.0-32.0); CREATININE 0.62 mg/dL (0.70-1.30); Calcium 8.1 mg/dL (8.5-10.1); Chloride 104 mmol/L (98-107); Glucose 117 mg/dL (70-100); Magnesium 1.6 mg/dL (1.8-2.4); Potassium 3.2 mmol/L (3.5-5.1); Sodium 137 mmol/L (136-145)
[2019-03-21 10:57] LABS: Diff Comment Diff Reviewed; Hypochromasia 2+; Platelet Count 158 x1000/uL (130-400)
[2019-03-21 11:33] LABS: Bilirubin Negative (Negative); Blood Negative (Negative); Clarity Clear (Clear); Glucose Negative (Negative); Ketones Negative (Negative); Leukocyte Esterase Negative (Negative); Nitrite Negative (Negative); pH 6.5 (5-8)
[2019-03-21 12:03] LABS: Bacteria Negative HPF (Negative); C & S Indicated? C&S Done As Ordered; Casts Negative LPF (Negative); Crystals Negative HPF (Negative); Epithelial Cells Rare HPF (Negative); Mucus Trace (Negative); Other Cells Negative (Negative); RBC 0-2 (0-2); WBC 0-2 HPF (0-5)
[2019-03-21] MEDS: MAGNESIUM SULFATE 2 GM/50 ML BAG IVPB (12:36)
[2019-03-21] MEDS: POTASSIUM CHLORIDE 20 MEQ/100 ML BAG 50 MEQ IVPB ×2 (13:05→15:26)
--- NOTE | 2019-03-21 14:32 | PDOC.CMIN ---
- If Service Date Differs Date of service: 03/21/19 Time of Service: 14:32 Care Management Initial Assess REASON FOR HOSPITALIZATION:: Esophageal cancer, N/V, FTT, dehydration PAST MEDICAL HISTORY/PAST SURGICAL HISTORY:: Acid reflux disease (Chronic). Back pain (Acute). Cancer related pain (Acute). Dysphagia (Acute). Esophageal cancer (Acute). Fatigue (Acute). Goals of care, counseling/discussion (Acute). Hyperlipidemia (Acute). Malignant cachexia (Acute). Palliative care patient (Acute). Stage IV adenocarcinoma of esophagus (Acute). Stomach cancer (Acute). Tobacco abuse (Acute). Unintentional weight loss (Acute) PREVIOUS FUNCTIONAL STATUS/SOCIAL/FAMILY SUPPORTS:: David lives with his spouse Madisyn in [facility]. He was diagnosed in November with esophageal cancer and is currently receiving treatment with chemotherapy and radiation. His spouse Madisyn provides his care including assistance with personal care and meals. David has lost large amount of weight, he has been unable to tolerate oral intake. he has not wanted a gtube. He does have palliaitve care [facility] CURRENT FUNCTIONAL STATUS:: David laid in bed quiet when CM enter the room. His spouse Madisyn answered most of the questions. David states his pain has not been controlled, he reports several different medications have been ordered. He has not been able to tolerate orals, his spouse reports he does better with some foods compared to other. He appears to do better with liquids, although even those can cause chest pain. He has an appointment on Saturday at [facility] with to follow up recent treatment and determine if the tumor has decreased in size. He and his spouse are hopeful that he will go into remission. David has not wanted the gtube, his spouse states he is trying to gain weight on his own. Madisyn is tearful at times she reports she works all day and takes care of David at night. She states it is becoming more difficult for her. Madisyn reports she needs to work, she carries the insurance and is the only income. David was approved for disability but his benefits do not start until April/.Madisyn is worried about the cost of ambulance transfer to [facility]. CM did contact Lilian DEANGELO there was no one available on the weekend that could review the benefits. CM did speak to a [employer] who requested the CM call on Saturday to speak with a employee benefits manager. Madisyn wants to drive David to [facility] CM explained that due to risk of transport and his acuity he will need to transfer by ambulance. Madisyn is resitant, CM updated provider with spouse concerns r/t transportation. CM encouraged Madisyn to contact insurance carrier and review benefits. David would also likely benefit from a [employer] through [place] CM will follow up on Saturday with the agency and request the family be contacted. ADVANCE DIRECTIVES:: None on file - Unable to complete at this time Has patient been provided with information about the portal?: Yes Did the patient sign up for the portal?: No CODE STATUS:: Full Code INSURANCE COVERAGE / FINANCIAL ISSUES:: CURRENT HOME/COMMUNITY SERVICES/EQUIPMENT:: [facility] and [facility] PRIMARY CARE PHYSICIAN:: Hernán Dolan POTENTIAL DISCHARGE NEEDS:: Transfer to [facility] PATIENT/FAMILY EDUCATION NEEDS:: Education r/t acute status and management ANTICIPATED BARRIERS TO DISCHARGE:: Awaiting bed availability at [facility] TRANSPORTATION:: Via ambulance vs private car PLAN:: David will be discahrged to [facility] when bed is available. CM to continue to provide support until transfer. CM will contact [facility] on the next business day to have them reach out to patient for case management support.
--- NOTE | 2019-03-21 17:03 | W.PM.DS.N ---
Date of service: 03/21/19 Time of Service: 17:03 DS: Diagnosis Discharge Diagnosis (1) Uncontrolled pain: Status: Acute (2) Stage IV adenocarcinoma of esophagus: Status: Acute (3) Dysphagia: Status: Acute (4) Malignant cachexia: Status: Acute Discharge Plan Disposition Patient Disposition: [facility] Condition: Stable Discharge Details Chief Complaint: GenMedical Clinical Impression: Palliative care patient, Adult failure to thrive, Acute dehydration Reason For Visit: ESOPHEGEAL CANCER,NAUSEA &VOMITING,FTT,DEHYDRATION Admit Date/Time: 03/20/19 15:15 Admit Provider: Rosemary Gama Attending Provider: Rosemary Gama Primary Care Provider: Gillian Jane ED Provider: [facility] Hospital Course Hospital Course: Chief Complaint: Failure to Thrive HPI: 58 year old unfortunate man with a history significant for Stage IV Adenocarcinoma of the Esophagus, admitted from [facility] Emergency Department on 03/20 with a diagnosis of dehydration and Failure to Thrive at home, and discovery of a partially obstructed vs. migrated esophageal stent. Mr. Shanks has a past Medical History significant for Stage IV Esophageal Adenocarcinoma, on chemo (last received approximately 11 days ago), s/p XRT and esophageal stent. Patient has been experiencing significant chest pain, especially with oral intake of solids, which has limited his ability to eat. He also occasional feels food getting stuck. He was initially evaluated by his PCP, and due to concern for FTT due to decreased oral intake, was referred for admission for further evaluation and treatment. Work-up thus far has shown evidence of moderate electrolyte abnormalities with hypokalemia and hypomagnesemia, as well as CT imaging suggestive of proximal esophageal stent obstruction. Following hydration Mr. Shanks actually feels improved. However, overnight he developed a one time episode of fever with a Temp of 38.1. Although he has a low WBC and received chemo last approximately 11 days ago, there is no evidence of neutropenia by labs. Subsequent CXR and Urinalysis were negative - obvious concern is for aspiration. Case was discussed with GI, and patient was accepted for further evaluation with an EGD, with potential intervention vs. PEG Tube placement if deemed appropriate. Currently able to hand thin liquids. He has been maintained on IV Dilaudid for pain control, as well as IV Zofran and Reglan as antiemetics. Of note, patient's imaging also shows evidence of an ascending aortic aneurysm, and increased stool in the cecum while on chronic opiate therapy - may benefit from addition of stool softeners besides miralax. Home Meds and New Rx's Prescriptions: Continued acetaminophen 650 mg tablet extended release 650 mg PO Q8H RF: 0 polyethylene glycol 3350 [Miralax] 17 gram powder in packet 17 gm PO DAILY RF: 0 prochlorperazine maleate 10 mg tablet 10 mg PO Q8H PRNRF: 0 omeprazole magnesium 10 mg susp,delayed release for recon 40 mg PO BID RF: 0 hydromorphone [Dilaudid] 2 mg tablet 2 mg PO Q4H MDD 12 mg PRN (Reason: pain) Qty: 30 RF: 0 lidocaine HCl [Lidocaine Viscous] 2 % solution 1 applic MM QID PRN (Reason: pain) Qty: 100 RF: 3 ondansetron 4 mg tablet,disintegrating 4 mg PO Q8H PRN (Reason: nausea and vomiting) Qty: 30 RF: 0 fentanyl 50 mcg/hr Patch 72 Hour 50 patch transdermal Q48H RF: 0 morphine 15 mg Tablet 15 mg PO Q4H PRNRF: 0 Discharge Instructions Activity:: OOB to chair Diet:: liquid, with ensure supplement drink at every meal Discharge Orders Discharge Orders: Discharge Order (Routine); Ordered 03/21/19 Ordered By: Tyrese Clemens DS: Data Vitals/I&O Vitals and I&O: Vital Signs Temperature 37.3 C 03/21/19 08:50 Temperature Source Tympanic 03/21/19 08:50 Pulse 68 03/21/19 08:50 Pulse Rhythm Regular 03/21/19 09:18 Pulse 67 03/20/19 15:50 Respiratory Rate 16 03/21/19 08:50 Respiratory Effort Non-Labored 03/21/19 09:18 Respiratory Depth Normal 03/21/19 09:18 Respiratory Pattern Normal 03/21/19 09:18 Blood Pressure 140/80 03/21/19 08:50 Blood Pressure Mean 76 03/20/19 15:45 Blood Pressure Position Sitting 03/20/19 12:46 Pulse Oximetry 96 03/21/19 08:50 Oxygen Delivery Method Room Air 03/21/19 08:50 Oxygen Flow Rate 0 03/21/19 08:50 Pain Level 9 03/21/19 16:11 Comment 03/21/19 01:05 Intake & Output 03/20/19 03/21/19 03/21/19 23:59 11:59 23:59 Intake Total 1000 / 1000 855 / 955 100 / 955 Output Total 200 / 200 Balance 1000 / 1000 855 / 755 -100 / 755 Weight 49.668 kg Intake: IV 1000 / 1000 855 / 955 100 / 955 Output: Urine 200 / 200 Other: Urine Appearance Clear Comment pt voiding independently. not being measured at this time Voiding Methods Urinal Completed studies during hospitalization [Text1]: Exam(s) 03/20/[address]:CT chest PE abd & pelvis w SYMPTOM/DIAGNOSIS: KNOWN ABD CA AND ESOPHAGEAL CA, DECREASED PO, VOMITING CTA CHEST, ABDOMEN AND PELVIS: CHEST: CT angiography was performed with multi slice acquisition and multi planar and 3D reconstruction. Comparison is made with 02/25/19. The ascending aorta is again noted to be dilated. There is no evidence of aortic dissection. An esophageal stent is seen. The stomach and esophagus are fluid filled. There may be obstruction at the upper aspect of the stent although no discrete mass is seen. There are no visible pulmonary emboli. There is some mucus within right lower lobe bronchi. No pleural or pericardial effusions or acute infiltrates are seen. There are underlying emphysematous changes and bulla at the lung apices. Bony metastases are again noted. A Port is seen over the left upper chest. IMPRESSION: No evidence of pulmonary emboli or aortic dissection. There is an apparent obstruction at the upper aspect of the esophageal stent. ABDOMEN AND PELVIS: The esophageal stent is again noted extending into the upper stomach. There is no small bowel dilatation. Increased stool is noted in the cecum and ascending colon. There are small mesenteric lymph nodes. The pancreas is atrophic. The kidneys show symmetric bilateral perfusion. There are several tiny cysts. There are no stones or hydronephrosis. The liver and gallbladder are unremarkable. There is calcification of the abdominal aorta and iliac arteries but no evidence of an aneurysm or dissection. The bladder is nearly empty. The prostate shows calcification but is normal in size. Numerous sclerotic bony metastases are seen. IMPRESSION: Increased stool in the cecum. Atherosclerotic changes of the abdominal aorta. No acute abnormality. EXAM: XR Chest, 1 View EXAM DATE/TIME: 03/21/2019 01:36 CLINICAL HISTORY: 58 years old, male; Dyspnea and fever; Prior surgery; Surgery date: 1-6 months; Surgery type: Port TECHNIQUE: Imaging protocol: XR of the chest, 1 view. COMPARISON: CT CHEST/ABD/PEL W 03/20/2019 13:27 FINDINGS: Tubes, catheters and devices: Right chest wall port in satisfactory position tip in the SVC. Lungs: Rotated study, with no new significant airspace disease. Significant pulmonary emphysema again seen. Pleural space: No significant pleural effusion. No pneumothorax. Heart/Mediastinum: Distal esophageal stent extending across the GE junction in stable configuration. Vasculature: Ascending aortic aneurysm. Bones/joints: No acute fracture. IMPRESSION: 1. Rotated study, with no new significant airspace disease. 2. Significant pulmonary emphysema again seen. 3. Ascending aortic aneurysm. 4. Distal esophageal stent extending across the GE junction in stable configuration. Labs on day of discharge: Labs from last 24 hours 03/21/19 03/21/19 03/21/19 11:20 10:20 10:20 WBC 2.60 L D RBC 2.95 L Hgb 9.1 L Hct 28.1 L MCV 95.3 H MCH 30.8 MCHC 32.4 RDW 14.9 H Plt Count 158 MPV 10.1 Immature Gran % 0.4 Neutrophils % 60.7 Band Neutrophils % Lymphocytes % 10.0 Atypical Lymphs % Monocytes % 28.1 Eosinophils % 0.4 Basophils % 0.4 Metamyelocytes % Myelocytes % Promyelocytes % Absolute Neutrophils 1.58 Absolute Lymphocytes 0.26 L Absolute Monocytes 0.73 H Absolute Eosinophils 0.01 Absolute Basophils 0.01 Nucleated RBCs Differential Comment Diff reviewed Other Cell Type RBC Morphology See below Polychromasia Hypochromasia 2+ Poikilocytosis Basophilic Stippling Anisocytosis Microcytosis Macrocytosis Spherocytes Target Cells Tear Drop Cells Ovalocytes Stomatocytes Benavidez[place] Bodies Maren Cells Acanthocytes (Spur) Schistocytes Sodium 137 Potassium 3.2 L Chloride 104 Carbon Dioxide 25.6 Anion Gap 7.4 BUN 13 D Creatinine 0.62 L Estimated GFR/1.73 m2 >= 60.00 Glucose 117 H Calcium 8.1 L Magnesium 1.6 L Urine Color Yellow Urine Clarity Clear Urine pH 6.5 Ur Specific [place] 1.020 Urine Protein 30 H Urine Ketones Negative Urine Blood Negative Urine Nitrite Negative Urine Bilirubin Negative Urine Urobilinogen 1.0 H Ur Leukocyte Esterase Negative Urine RBC 0-2 Urine WBC 0-2 Ur Epithelial Cells Rare Urine Crystals Negative Urine Bacteria Negative Urine Casts Negative Urine Mucus Trace Urine Other Negative Ur Culture Indicated? C&s done as ordered Urine Glucose Negative 03/21/19 03/21/19 06:40 06:40 WBC Cancelled RBC Cancelled Hgb Cancelled Hct Cancelled MCV Cancelled MCH Cancelled MCHC Cancelled RDW Cancelled Plt Count Cancelled MPV Cancelled Immature Gran % Cancelled Neutrophils % Cancelled Band Neutrophils % Cancelled Lymphocytes % Cancelled Atypical Lymphs % Cancelled Monocytes % Cancelled Eosinophils % Cancelled Basophils % Cancelled Metamyelocytes % Cancelled Myelocytes % Cancelled Promyelocytes % Cancelled Absolute Neutrophils Cancelled Absolute Lymphocytes Cancelled Absolute Monocytes Cancelled Absolute Eosinophils Cancelled Absolute Basophils Cancelled Nucleated RBCs Cancelled Differential Comment Cancelled Other Cell Type Cancelled RBC Morphology Cancelled Polychromasia Cancelled Hypochromasia Cancelled Poikilocytosis Cancelled Basophilic Stippling Cancelled Anisocytosis Cancelled Microcytosis Cancelled Macrocytosis Cancelled Spherocytes Cancelled Target Cells Cancelled Tear Drop Cells Cancelled Ovalocytes Cancelled Stomatocytes Cancelled Benavidez[place] Bodies Cancelled Maren Cells Cancelled Acanthocytes (Spur) Cancelled Schistocytes Cancelled Sodium Cancelled Potassium Cancelled Chloride Cancelled Carbon Dioxide Cancelled Anion Gap Cancelled BUN Cancelled Creatinine Cancelled Estimated GFR/1.73 m2 Cancelled Glucose Cancelled Calcium Cancelled Magnesium Cancelled Urine Color Urine Clarity Urine pH Ur Specific [place] Urine Protein Urine Ketones Urine Blood Urine Nitrite Urine Bilirubin Urine Urobilinogen Ur Leukocyte Esterase Urine RBC Urine WBC Ur Epithelial Cells Urine Crystals Urine Bacteria Urine Casts Urine Mucus Urine Other Ur Culture Indicated? Urine Glucose 03/21/19 11:20 Urine - Clean Catch Urine Culture - Pending 03/21/19 02:10 Blood Blood Culture - Pending 03/21/19 02:20 Blood Blood Culture - Pending Preliminary micro results at discharge 03/21/19 11:20 Urine Culture - Pending Urine - Clean Catch 03/21/19 02:10 Blood Culture - Pending Blood 03/21/19 02:20 Blood Culture - Pending Blood [facility] Medical History Acid reflux disease (Chronic) Back pain (Acute) Cancer related pain (Acute) Dysphagia (Acute) Esophageal cancer (Acute) Fatigue (Acute) Goals of care, counseling/discussion (Acute) Hyperlipidemia (Acute) Malignant cachexia (Acute) Palliative care patient (Acute) Stage IV adenocarcinoma of esophagus (Acute) Stomach cancer (Acute) Tobacco abuse (Acute) Unintentional weight loss (Acute) Surgical History H/O esophagogastroduodenoscopy (Chronic) and esophageal stent Port-A-Cath in place (Acute) Family History Mother , age 89 following a fall Fall Mixed Alzheimer's and vascular dementia Father , age 72 from COPD End stage COPD Smoker Brother End stage COPD Smoker Brother No problems noted. Sister No problems noted. Sister No problems noted. Sister No problems noted. Son No problems noted. Son No problems noted. Social History Smoking/Tobacco Use Status: Former Tobacco Use Tobacco: How many years used: 45 Second Hand Exposure: No Alcohol Intake: former Drug use: Never Caregiver/Support person: Yes Household members: spouse Housing: house Number of Children: 2 number of grandchildren: 2 Communication Needs: Hard of Hearing and Corrective Lenses Education Level: high school Do you need help understanding health information?: Always current occupation: disabled as of December 2018 [employer] Pets and animals: No What is your relationship status?: How often do you talk on the phone with friends or family?: once per week How often do you get together with friends or relatives?: three or more times per week Panel score (0-1 are the most socially isolated patients): 2 What type of physical activity do you participate in: none Special joselito needs: No Agree to transfusion: Yes Seatbelt use: sometimes Firearms in home: Yes Do you feel safe at home: Yes Do you feel safe in your relationship?: Yes Additional Social history: in November 2018. Diagnosed with stage IV esophageal cancer in December. House under major renovations. Too weak to sit up during his visit. Cannot manage construction project. took out major loan for work. Afraid she will lose her house now. Needed 2 incomes to pay bills.
[2019-03-21] MEDS: fentaNYL 50 MCG PATCH TD (17:22)
[2019-03-21 17:23] VITALS: BP 110/67; PULSE 79; RESP 18; TEMP 38.3; O2SAT 93
--- NOTE | 2019-03-21 18:05 | NUR.NOTE ---
Report given to MADISON Nguyen at [address] [place] [address]. Nursing Note:
== END 2019-03-21 17:40 | disposition short-term general hospital (02) | DRG 641 ==
LOC: ER 15:31 → MS 16:29
PROVIDERS: Internal Medicine; Admitting Provider Internal Medicine; Emergency Provider Student in an Organized Health Care Education/Training Program; PCP Nurse Practitioner Family; Visit Provider Internal Medicine
DX: E86.0 Dehydration (principal); C15.9 Malignant neoplasm of esophagus, unspecified; Z68.1 Body mass index [BMI] 19.9 or less, adult; R64 Cachexia; T85.9XXA Unspecified complication of internal prosthetic device, implant and graft, initial encounter; R62.51 Failure to thrive (child); R63.0 Anorexia; R13.10 Dysphagia, unspecified; Z79.899 Other long term (current) drug therapy; E87.6 Hypokalemia; E83.42 Hypomagnesemia; Z45.2 Encounter for adjustment and management of vascular access device
CPT/HCPCS: 36415; 71275; 74177; 80048; 80053; 83690; 87040; 93005; 96361; 96374; 96375; 99223; 99239; 99285; 71045; 81003; 81015; 83735; 84484; 85025; 87086; 93010; J1644; J2270; J2405; J2765; J3480; J3490